=== PATIENT | male | born 1965 | race Caucasian/White ===

== ENCOUNTER 2017-03-25 08:43 | Emergency (ER) | payer BC ==
[2017-03-25] MEDS ORDERED: MORPHINE SULFATE 10 MG/ML AMP IM ONE (08:55)
[2017-03-25] MEDS ORDERED: KETOROLAC TROMETHAMINE 60 MG/2 ML VIAL IM ONE (08:55)
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
[2017-03-25 10:36] VITALS: BP 131/87
== END 2017-03-25 10:32 | disposition home or self-care (01) ==
LOC: ED 08:43
DX: S92.145A Nondisplaced dome fracture of left talus, initial encounter for closed fracture (principal); W19.XXXA Unspecified fall, initial encounter; Y93.9 Activity, unspecified; Y99.9 Unspecified external cause status; H66.92 Otitis media, unspecified, left ear
CPT/HCPCS: 73610; J1885; J2270

== ENCOUNTER 2017-04-12 20:50 | Emergency (ER) | payer BC, OTHER ==
[2017-04-12] MEDS ORDERED: Lidocaine 1% 5ml(IM or SUTURE)(PAIN CLINIC) ONE ×2 (21:01→21:25)
[2017-04-12] MEDS ORDERED: Lidocaine 1% 5ml(IM or SUTURE)(PAIN CLINIC) IJ ONE (22:11)
[2017-04-12] MEDS ORDERED: CLINDAMYCIN HCL 150 MG CAPSULE PO ONE (22:12)
--- NOTE | 2017-04-12 22:21 | ED Physician Documentation ---
General Adult - HISTORIAN Historian: patient - HPI Stated Complaint: laceration Chief Complaint: Laceration/Recheck/Suture Additional Information: Pt is a 51 yo male that presents with a left hand laceration. Pt was driving a wooden stake into the ground and caught the webbing between his thumb and pointer finger between the hammer head a stake causing the laceration. Happened just [employer]. Pt last tetanus was 2 years ago. Denies other c/o. Timing: still present - ROS CONST: no problems EYES/ENT: none CVS/RESP: none GI/: none MS/SKIN/LYMPH: other (laceration to left hand) - PAST HX Past History: none Allergies/Adverse Reactions: Allergies Allergy/AdvReac Type Severity Reaction Status Date / Time No Known Allergies Allergy Verified 02/17/15 15:56 Home Medications: Ambulatory Orders Medication Instructions Recorded Levofloxacin [Levaquin] 500 mg PO DAILY #5 tablet 03/25/17 - SOCIAL HX Smoking History: non-smoker - FAMILY HX Family History: No - VITAL SIGNS Vital Signs: Vital Signs Temp Pulse Resp BP Pulse Ox 98.4 F 99 H 20 146/93 97 04/12/17 21:05 04/12/17 21:05 04/12/17 21:05 04/12/17 21:05 04/12/17 21:05 - REVIEWED ASSESSMENTS Nursing Assessment Reviewed: Yes Vitals Reviewed: Yes Procedures Wound Location: upper extremity (left hand) Wound's Depth, Shape: into muscle, linear Wound Explored: no foreign body removed Betadine Prep?: No (Chloraprep) Anesthesia: 1% Lidocaine Wound Repaired With: sutures Suture Size/Type: 4:0 Number of Sutures: 5 Layer Closure?: No Sterile Dressing Applied?: Yes Progress: RBA explained to patient and he agreed to the procedure. Area was cleaned with alcohol and anesthetized with 10ml of 1% Lidocaine without Epi. Once anesthesia was obtained wound was thoroughly cleaned with Chloraprep and NS. No foreign body was found. Laceration was sutured with a combination of simple interrupted and horizontal mattress sutures - total of 5. Pt tolerated procedure well and no adverse effects were experienced. ED Results Lab/Radiology - Orders Orders: ED Orders Category Date Time Status Clindamycin HCl [Cleocin] Med 04/12/17 22:12 Once 300 mg PO NOW ONE Lidocaine 1% 5ml(IM or SUTURE) [Xylocaine] Med 04/12/17 21:01 Discontinued 50 mg .ROUTE .STK-MED ONE Lidocaine 1% 5ml(IM or SUTURE) [Xylocaine] Med 04/12/17 21:25 Discontinued 50 mg .ROUTE .STK-MED ONE Lidocaine 1% 5ml(IM or SUTURE) [Xylocaine] Med 04/12/17 22:11 Once 50 mg IJ NOW ONE General Adult Physical Exam - PHYSICAL EXAM GENERAL APPEARANCE: no distress EENT: ENT inspection normal NECK: normal inspection RESPIRATORY: no resp distress, breath sounds normal CVS: reg rate & rhythm, heart sounds normal ABDOMEN: no organomegaly, normal bowel sounds SKIN: other (Left thenar eminence - roughly 3cm curved, linear laceration with skin flap noted. Bleeding is well controlled.) EXTREMITIES: normal range of motion NEURO: oriented X3, motor nml, sensation nml, other (Pt has full ROM of left hand, in particular his left thumb and index finger. Cap refill is brisk. No bony tenderness.) Discharge Clincal Impression: Laceration of left hand Qualifiers: Encounter type: initial encounter Foreign body presence: without foreign body Qualified Code(s): S61.412A - Laceration without foreign body of left hand, initial encounter Referrals: Travis Del Cid, [Primary Care Provider] - 2 Days Additional Instructions: Take medications as prescribed. Keep wound clean and covered. Do not soak the wound in water or other liquid. May put triple antibiotic or bactroban on wound. Return for suture removal in 10 days. Return to the ER should any of the symptoms we discussed occur - redness tracking up your arm, swelling or purulent drainage from the wound. Home Medications: Ambulatory Orders Levofloxacin [Levaquin] 500 mg PO DAILY #5 tablet 03/25/17 Condition: Good Disposition: 01 HOME, SELF-CARE Decision to Admit: NO Decision Time: 22:18
[2017-04-12 23:13] VITALS: BP 132/84
== END 2017-04-12 22:23 | disposition home or self-care (01) ==
LOC: ED 20:50
DX: S61.412A Laceration without foreign body of left hand, initial encounter (principal); X58.XXXA Exposure to other specified factors, initial encounter; Y93.9 Activity, unspecified; Y99.9 Unspecified external cause status
CPT/HCPCS: 12001; 99283; A9270

== ENCOUNTER 2019-06-11 12:49 | Emergency (ER) | payer SELFPAY ==
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
[2019-06-11] MEDS: fentaNYL CITRATE/PF 100 MCG/2 ML INJ. IV ONE (13:01)
[2019-06-11 13:07] LABS: BASOPHILS % 0.7 % (0.0-1.5); NEUTROPHILS # 3.8 # k/uL (1.4-7.7)
[2019-06-11] MEDS: ONDANSETRON HCL/PF 4 MG/ 2ML VIAL IVP ONE (13:24)
[2019-06-11 13:28] LABS: eGFR (Non-African) > 60
[2019-06-11] MEDS: 0.9 % SODIUM CHLORIDE 1,000 ML IV ONE ×2 (13:31)
[2019-06-11] MEDS: ONDANSETRON HCL/PF 4 MG/ 2ML VIAL ONE (13:32)
[2019-06-11] MEDS: GUM MASTIC/STORAX/MSAL/ALCOHOL 1 EACH DROPERETTE TP ONE (13:32)
[2019-06-11] MEDS: KETOROLAC TROMETHAMINE 30 MG/1ML VIAL IV ONE (14:05)
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
--- NOTE | 2019-06-11 14:36 | Diagnostic Imaging Report ---
[facility] [address] [facility].[address] [address] Report Submission Date: Jun 11, 2019 1:33:05 PM CDT Patient Study Name: ABAD RODRIGUEZ Date: Jun 11, 2019 12:48:27 PM CDT Modality Type: DX Gender: M Description: FOREARM 2 VIEWS : 67 Institution: [facility] Physician: SALLIE BOO ED Examination: Plain film forearm History: INJURY TO LEFT FOREARM Comparison exams: None available Findings: 2 views of the radius and ulna demonstrates normal cortical margins. No evidence for fracture line. No soft tissue abnormality. Impression: No acute osseous abnormality. Electronically signed on Jun 11, 2019 1:33:05 PM CDT by: Adalberto AVILA
[2019-06-11 14:52] VITALS: BP 129/80
== END 2019-06-11 14:33 | disposition home or self-care (01) ==
LOC: ED 12:49
DX: S59.912A Unspecified injury of left forearm, initial encounter (principal); X58.XXXA Exposure to other specified factors, initial encounter; Y99.8 Other external cause status
CPT/HCPCS: 73090; 73130; 80053; 85025; 93005; 96361; 96374; 96375; 99284; J1885; J2405; J3010; J7030; S1016